=== PATIENT | male | born 1965 | race Caucasian/White ===

== ENCOUNTER 2017-08-05 10:09 | Emergency (ER) | payer OTHER ==
[2017-08-05] MEDS ORDERED: Ondansetron INJ* 2 MG/ML VIAL IV ONE (10:17)
[2017-08-05] MEDS ORDERED: Morphine INJ* 2 MG/ML 1 ML SYRINGE (TWO MG - NEW SYRINGE VERSION) IV ONE (10:17)
[2017-08-05 10:18] VITALS: BP 137/80
[2017-08-05] MEDS ORDERED: NS 0.9% 1000 ML* 1,000 ML IV ONE (10:20)
[2017-08-05] MEDS ORDERED: Morphine INJ* 2 MG/ML 1 ML CARPUJECT ONE (10:26)
--- NOTE | 2017-08-05 10:28 | UC ---
Jacob Mackey Thomas, scribed for Lisa Bernal MD on 08/05/17 at 1021 . Truncal Trauma HPI - HPI Summary HPI Summary: The pt is a 51 y/o M presenting to Urgent Care c/o back pain and rib pain s/p an injury that occurred today at about 08:00. The patient was cutting wood when he was struck in his back by a branch, causing his body to be thrown upwards over a tree and landing on right back / ups. The pain is greatest on the right right side of his ribs and back. The pain is constant and is severe. Pt states pain increases with movement and deep breaths. Pt states he was able to drive himself out of the [place] " but that is about it" Pt was driven to . The pain is aggravated by breathing and movement. It is alleviated by nothing. 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 Pt has no other complaints at this time. Pt denies head trauma, LOC, no neck pain, no blood out of eyes/ ears/nose/mouth. No abdominal pain. No n/c. The patient did use marijuana today although he denies alcohol or drug use today. not anticoagulated. Patients medication reviewed this visit. 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 Onset/Duration: Lasting Hours - today at 08:00, Still Present Severity Initially: Severe Severity Currently: Severe Mechanism Of Injury: Blunt Trauma, Fall From A Standing Position, Other - struck in his back by a branch Aggravating Factor(s): Movement, Deep Breathing, Other - palpation Alleviating factor(s): Nothing - Allergies/Home Medications Allergies/Adverse Reactions: Allergies Allergy/AdvReac Type Severity Reaction Status Date / Time Prednisone Allergy Severe Bone Pain Verified 07/02/16 16:01 PMH/Surg Hx/FS Hx/Imm Hx Previously Healthy: No - Carpel Tunnel Syndrome, HLD - Surgical History Surgical History: Yes Surgery Procedure, Year, and Place: POLYPS REMOVED FROM VOCAL CORDS 2009 OR 2011 , carpal tunnel - Family History Known Family History: Positive: Hypertension, Diabetes - Social History 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 Lives: With Family Alcohol Use: Occasionally Substance Use Type: Marijuana Substance Use Comment - Amount & Last Used: DAILY Smoking Status (MU): Current Every Day Smoker Type: Cigarettes Amount Used/How Often: 1 1 1/2 PPD Length of Time of Smoking/Using Tobacco: 20 Have You Smoked in the Last Year: Yes Review of Systems Constitutional: Other - NEGATIVE: fever Eyes: Negative ENT: Negative Respiratory: Other - pain in right posterior ribs, upper back Genitourinary: Negative Motor: Negative Neurovascular: Negative Musculoskeletal: Negative, Other: - Back pain Neurological: Negative Is Patient Immunocompromised?: No All Other Systems Reviewed And Are Negative: Yes Physical Exam Triage Information Reviewed: Yes Appearance: Well-Nourished, Pain Distress Vital Signs: Initial Vital Signs Temp 99.1 F 08/05/17 10:15 Pulse 100 08/05/17 10:15 Resp 24 08/05/17 10:15 BP 137/80 08/05/17 10:15 Pulse Ox 96 08/05/17 10:15 Vital Signs Reviewed: Yes Eyes: Positive: Conjunctiva Clear. Negative: Discharge ENT: Positive: Hearing grossly normal Neck exam: Normal Neck: Positive: Supple, Nontender Respiratory: Positive: Other: - + BS but decreased at bases. Pt shallow resp second to pain + significant TTP right posterior ribs - mid back. Negative: No accessory muscle use Cardiovascular Exam: Normal Cardiovascular: Positive: RRR, No Murmur Abdominal Exam: Normal Abdomen Description: Positive: Nontender, No Organomegaly, Soft, Other: - soft + BS no guarding, no rebound. No ecchymosis to abdomen No ecchymosis to flank Bowel Sounds: Positive: Present Musculoskeletal: Positive: Other: - no pain c spine + Movement of RUQ causes pain in right back. No pain in extremities No pain spinous process c/t/l/s No crepitus but pain along right, mid posterior ribs Neurological Exam: Normal Neurological: Positive: Alert Psychological Exam: Normal Skin: Positive: Other - pt with mobile ? lipoma right distal rib - old per pt Truncal Trauma Course/Dx - Course Course Of Treatment: The pt is a 51 year old male with severe back and rib pain status post an injury that occurred today at about 08:00. The patient was cutting wood when he was struck in his back by a branch, causing his body to be thrown upwards into a tree. Pt is significant pain along right posterior ribs. No spinous process pain. Will place IV. analgesia, antiemetic. Will send to ED by EMS. Pt in agreement - Differential Dx/Diagnosis Provider Diagnoses: right posterior rib pain s/p direct trauman and subsequent fall. blunt trauma Discharge - Discharge Plan Condition: Stable Disposition: TRANS HIGHER LVL OF CARE FAC Referrals: Eric Carson DO [Primary Care Provider] - The documentation as recorded by the Jacob shahid Thomas accurately reflects the service I personally performed and the decisions made by , Lisa Bernal MD.
== END 2017-08-05 10:45 | disposition short-term general hospital (02) ==
LOC: UCEAST 10:09
DX: S29.9XXA Unspecified injury of thorax, initial encounter (principal); R07.81 Pleurodynia; W18.00XA Striking against unspecified object with subsequent fall, initial encounter; Y92.9 Unspecified place or not applicable; F17.210 Nicotine dependence, cigarettes, uncomplicated; Z88.8 Allergy status to other drugs, medicaments and biological substances
CPT/HCPCS: 96360; 96374; 96376; 99213; G0463; J2270; J2405

== ENCOUNTER 2017-08-05 11:06 | Emergency (ER) | payer OTHER ==
[2017-08-05] MEDS ORDERED: NS 0.9% 1000 ML* 1,000 ML IV ONE (11:14)
[2017-08-05] MEDS ORDERED: HYDROmorphone INJ* 2 MG/ML CARPUJECT SYRINGE IV SLOW PU ONE (11:14)
[2017-08-05] MEDS ORDERED: Ondansetron INJ* 2 MG/ML VIAL IV ONE (11:14)
[2017-08-05] MEDS ORDERED: Iohexol 300* (CONTRAST) 10 ML SDV IV ONE (11:31)
[2017-08-05 11:57] LABS: Hematocrit 45 % (42-52); Hemoglobin 14.8 g/dl (14.0-18.0); Mean Corpuscular HGB Conc 33 g/dl (31-36); Mean Corpuscular Hemoglobin 31 pg (27-31); Mean Corpuscular Volume 93 fL (80-94); Mean Platelet Volume 8 um3 (7.4-10.4); Red Blood Count 4.77 10^6/ul (4.0-5.4); Red Cell Distribution Width 14 % (10.5-15); White Blood Count 13.1 10^3/ul (3.5-10.8)
[2017-08-05 12:10] LABS: Albumin 4.1 g/dL (3.2-5.2); BUN/Creatinine Ratio 16.7 (8-20); Calcium 10.3 mg/dL (8.6-10.3); EGFR Non-African American 115.1 (>60); Globulin 2.8 g/dL (2-4); Potassium 3.8 mmol/L (3.5-5.0); Total Bilirubin 0.4 mg/dL (0.2-1.0); Total Protein 6.9 g/dL (6.4-8.9)
--- NOTE | 2017-08-05 12:18 | RAD ---
HISTORY: Trauma, back pain COMPARISONS: None TECHNIQUE: Multiple contiguous axial CT scans were obtained of the cervical spine without intravenous contrast, with coronal and sagittal multiplanar reformations. FINDINGS: BRAIN: The visualized brain is unremarkable CENTRAL CANAL: Evaluation of the central canal is limited on CT technique; however, there is no obvious canalicular mass or epidural hemorrhage. ALIGNMENT: The alignment is normal, without subluxation or dislocation. VERTEBRAL BODIES: The odontoid process is intact. The atlantoaxial intervals are symmetric. The vertebral bodies are normal in attenuation, without fracture. JOINTS: There is uncovertebral hypertrophy at C6-C7. MUSCULATURE: Normal INTERVERTEBRAL DISCS: There is diffuse loss of intervertebral disc height. AXIAL IMAGES: C2-C3: There is no osseous neural foraminal narrowing or central canal stenosis. C3-C4: There is no osseous neural foraminal narrowing or central canal stenosis. C4-C5: There is no osseous neural foraminal narrowing or central canal stenosis. C5-C6: There is no osseous neural foraminal narrowing or central canal stenosis. C6-C7: There is moderate bilateral neural foraminal narrowing. There is no osseous central canal stenosis. C7-T1: There is no osseous neural foraminal narrowing or central canal stenosis. SOFT TISSUES: The visualized soft tissues of the neck are unremarkable. The prevertebral fat stripe is preserved. OTHER: None. IMPRESSION: 1. DEGENERATIVE DISC DISEASE AND OSTEOARTHRITIS MOST PRONOUNCED AT C6-C7. 2. NO ACUTE OSSEOUS INJURY TO THE CERVICAL SPINE
--- NOTE | 2017-08-05 12:35 | RAD ---
INDICATION: Fall, back pain. COMPARISON: There are no prior studies available for comparison. TECHNIQUE: A CT scan of the chest, abdomen and pelvis was performed with intravenous and without oral contrast following intravenous injection of 90 ml of Omnipaque 300 nonionic contrast. Contiguous axial sections were obtained from the lung apices through the symphysis pubis. Images were reconstructed in the coronal and sagittal planes. FINDINGS: There is mild dependent bilateral lower lobe subsegmental atelectasis. No pleural effusion or pneumothorax is seen. No mediastinal hemorrhage is seen. There are mildly prominent lymph nodes in the precarinal region measuring up to 1 cm in transverse dimension. No other enlarged mediastinal or hilar lymph nodes are seen. The heart is within normal limits in size. No pericardial effusion is present. The thoracic aorta is normal in caliber and demonstrates homogeneous contrast opacification. The liver and spleen are normal in size without significant focal abnormality. No calcified gallstones are seen. The pancreas appears to be within normal limits in size. The kidneys and adrenal glands are normal in size. There is no evidence for hydronephrosis. No significant focal renal abnormality is seen. The aorta is normal in caliber and there is mild calcific plaque present. There is no evidence for retroperitoneal hemorrhage. No significant enlarged retroperitoneal lymph nodes are seen. The stomach, small and large bowel appear nondistended. The appendix appears to be within normal limits. No small bowel or colon wall thickening is seen. No free intraperitoneal air or fluid is seen. There are slightly displaced fractures of the right posterior lateral ninth and 10th ribs. IMPRESSION: 1. SLIGHTLY DISPLACED FRACTURES OF THE RIGHT POSTERIOR NINTH AND 10TH RIBS. NO EVIDENCE FOR PULMONARY CONTUSION, PNEUMOTHORAX OR PLEURAL EFFUSION. 2. NO EVIDENCE FOR INTRA-ABDOMINAL INJURY.
--- NOTE | 2017-08-05 13:29 | RAD ---
HISTORY: Trauma, back pain COMPARISONS: CT of the chest abdomen and pelvis performed on the same day TECHNIQUE: Multiple contiguous axial CT scans were obtained of the thoracic spine without intravenous contrast, with coronal and sagittal multiplanar reformations. FINDINGS: SPINAL CANAL: Evaluation of the central canal is limited on CT technique; however, there is no obvious canalicular mass or epidural hemorrhage. ALIGNMENT: The alignment is normal. VERTEBRAL BODIES: The vertebral bodies are preserved in height. The bones are normal in attenuation. There is mild anterolateral marginal osteophyte formation. JOINTS: There is osteoarthrosis of the costovertebral articulations. MUSCULATURE: Unremarkable INTERVERTEBRAL DISCS: There is diffuse loss of intervertebral disc height throughout the spine. AXIAL IMAGES: There is no osseous central canal stenosis or neuroforaminal narrowing. SOFT TISSUES: The visualized soft tissues of the chest and abdomen are unremarkable. 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 DEGENERATIVE DISC DISEASE AND OSTEOARTHRITIS. 2. NO OSSEOUS NEURAL FORAMINAL NARROWING OR CENTRAL CANAL STENOSIS. 3. NO ACUTE OSSEOUS INJURY TO THE THORACIC SPINE
[2017-08-05 15:13] VITALS: BP 117/71
--- NOTE | 2017-08-05 18:06 | ED ---
Joey Mackey Angela, scribed for Hellen Moore MD on 08/05/17 at 1123 . Adult Trauma - HPI Summary HPI Summary: This pt is a 51 y/o male [facility]/o right sided back pain s/p getting hit by a tree branch. Pt reports he was cutting branches today when a branch hit him on his back and subsequently fell, landing on his arms. He denies LOC or head strike. Pt notes his pain is aggravated when breathing. Pt smokes 1.5 ppd and marijuana daily. Pt currently takes vitamins. Allergies include prednisone. - History of Current Complaint Stated Complaint: FALL Hx Obtained From: Patient Mechanism of Injury: Fall Ambulatory at the Scene: Yes Loss of Consciousness: no loss of consciousness Onset/Duration: Started Hours Ago, Traumatic, Still Present Onset of Pain: Immediate Current Severity: Severe Pain Intensity: 10 Pain Scale Used: 0-10 Numeric Location: Back Aggravating Factor(s): Other - breathing Alleviating Factor(s): Nothing Associated Signs & Symptoms: Negative: Loss of Consciousness - Allergy/Home Medications Allergies/Adverse Reactions: Allergies Allergy/AdvReac Type Severity Reaction Status Date / Time Prednisone Allergy Severe Bone Pain Verified 08/05/17 11:18 Poison Hazard Extract Allergy Unknown Verified 08/05/17 11:18 Reaction Details PMH/Surg Hx/FS Hx/Imm Hx Endocrine/Hematology History: Denies: Hx Diabetes, Hx Thyroid Disease Cardiovascular History: Reports: Hx Angina, Hx Hypercholesterolemia Denies: Hx Coronary Artery Disease, Hx Hypertension, Hx Myocardial Infarction , Hx Valvular Heart Disease Respiratory History: Reports: Other Respiratory Problems/Disorders - SOB recently Denies: Hx Asthma, Hx Chronic Obstructive Pulmonary Disease (COPD) Musculoskeletal History: Reports: Other Musculoskeletal History - BACK MUSCLES AND SHOULDER PAIN, STIFFNESS IN JOINTS, carpal tunnel Sensory History: Reports: Hx Contacts or Glasses Denies: Hx Hearing Aid Opthamlomology History: Reports: Hx Contacts or Glasses - Surgical History Surgery Procedure, Year, and Place: POLYPS REMOVED FROM VOCAL CORDS 2009 OR 2011 , carpal tunnel Hx Anesthesia Reactions: No Infectious Disease History: Denies: Hx Hepatitis, Hx Human Immunodeficiency Virus (HIV), Traveled Outside the [place] in Last 30 Days - Family History Known Family History: Positive: Hypertension, Diabetes - Social History Alcohol Use: Occasionally Substance Use Type: Reports: Marijuana Substance Use Comment - Amount & Last Used: DAILY Smoking Status (MU): Current Every Day Smoker Type: Cigarettes Amount Used/How Often: 1 1 1/2 PPD Length of Time of Smoking/Using Tobacco: 20 Have You Smoked in the Last Year: Yes Review of Systems Negative: Fever, Chills Eyes: Negative ENT: Negative Cardiovascular: Negative Positive: Other - back pain Negative: Headache - or head strike, Syncope - or LOC All Other Systems Reviewed And Are Negative: Yes Physical Exam Triage Information Reviewed: Yes Vital Signs Reviewed: Yes Appearance: Positive: Thin Skin: Positive: Warm, Skin Color Reflects Adequate Perfusion, Dry Head/Face: Positive: Normal Head/Face Inspection Eyes: Positive: Normal ENT: Positive: Normal ENT inspection, Hearing grossly normal Respiratory/Lung Sounds: Positive: Clear to Auscultation, Decreased Breath Sounds - secondary to pain Cardiovascular: Positive: Normal, RRR Musculoskeletal: Positive: Other - some tenderness and swelling over the right scapular area. Pain is worse with deep breathing. Neurological: Positive: Normal, Sensory/Motor Intact, Alert, Oriented to Person Place, Time Psychiatric: Positive: Normal Diagnostics - Laboratory Result Diagrams: 08/05/17 11:34 08/05/17 11:34 Lab Statement: Any lab studies that have been ordered have been reviewed, and results considered in the medical decision making process. - CT Cervical spine CT CT Interpretation: No Acute Changes - IMPRESSION: 1. Degenerative disc disease and osteoarthritis most pronounced at C6-C7. 2. No acute osseous injury to the cervical spine. ED physician has reviewed this radiology report and agrees. CT Interpretation Completed By: Radiologist Chest/Abdomen/Pelvis CT CT Interpretation: Positive (See Comments) - IMPRESSION: 1. Slightly displaced fractures of the right posterior ninth and 10th ribs. No evidence for pulmonary contusion. Pneumothorax or pleural effusion. 2. No evidence for intra-abdominal injury. ED physician has reviewed this radiology report and agrees. CT Interpretation Completed By: Radiologist Thoracic spine CT CT Interpretation: No Acute Changes - IMPRESSION: 1. Degenerative disc disease and osteoarthritis. 2. No osseous neural foraminal narrowing or central canal stenosis. 3. No acute osseous injury to the thoracic spine. ED physician has reviewed this radiology report and agrees. CT Interpretation Completed By: Radiologist Re-Evaluation - Re-Evaluation First Eval Re-Evaluation Time: 13:15 Comment: I reviewd the CT chest/abd/pelvis results with the pt. Adult Trauma Course/Dx - Course Assessment/Plan: Pt is a 51 y/o male who presents with right sided back pain s/ p getting hit by a tree branch. Blood work, chest XR, CT chest/abdomen/pelvis, CT cervical spine, and CT thoracic spine were obtained. Lab work show WBC of 13.1, glucose of 124. In the ED course the pt was given IV fluids, dilaudid, and zofran. Cervical spine CT shows 1. Degenerative disc disease and osteoarthritis most pronounced at C6-C7. 2. No acute osseous injury to the cervical spine. CT chest/abdomen/pelvis reveals : 1. Slightly displaced fractures of the right posterior ninth and 10th ribs. No evidence for pulmonary contusion. Pneumothorax or pleural effusion. 2. No evidence for intra-abdominal injury. Thoracic spine CT shows 1. Degenerative disc disease and osteoarthritis. 2. No osseous neural foraminal narrowing or central canal stenosis. 3. No acute osseous injury to the thoracic spine. Pt will be discharged home with oxycodone and spirometer. Pt is agreeable with this plan. - Diagnoses Provider Diagnoses: Rib fracture Discharge - Discharge Plan Condition: Stable Disposition: HOME Prescriptions: oxyCODONE/Acetamin 5/325 MG* [Percocet 5/325 TAB*] 1 tab PO Q6H PRN #20 tab MDD 4 PRN Reason: Pain oxyCODONE/Acetamin 5/325 MG* [Percocet 5/325 TAB*] 1 tab PO Q6H PRN #20 tab MDD 2 PRN Reason: Pain Patient Education Materials: Rib Fracture (ED) Referrals: Eric Carson DO [Primary Care Provider] - 2 Days Additional Instructions: Use spirometer every 15 minutes while awake. Return to ED if worse. The documentation as recorded by the Joey shahid Angela accurately reflects the service I personally performed and the decisions made by , Hellen Moore MD.
== END 2017-08-05 15:09 | disposition home or self-care (01) ==
LOC: ED 11:06
DX: S22.39XA Fracture of one rib, unspecified side, initial encounter for closed fracture (principal); M54.9 Dorsalgia, unspecified; M51.34 Other intervertebral disc degeneration, thoracic region; W22.8XXA Striking against or struck by other objects, initial encounter; Y93.H2 Activity, gardening and landscaping; Y92.9 Unspecified place or not applicable
CPT/HCPCS: 36415; 71260; 72125; 72128; 74177; 80053; 82550; 83605; 85025; 85610; 86850; 86900; 86901; 96374; 96375; 99282; J1170; J2405; Q9967

== ENCOUNTER → 2019-04-02 06:36 | Day surgery (SDC) | payer OTHER ==
[~2019-04-02 06:36] MED LIST: Acetaminophen TAB* 325 MG PO PRN; Buffered Lidocaine 1% SYRIN* 1 ML/SYRINGE INTRADERM ONE; Bupivacaine 0.25% W/EPI* 10 ML SDV ONE; Dexamethasone IV* 4 MG/ML 1 ML (4 MG) IV SLOW PU ONE; Dexamethasone IV* 4 MG/ML 1 ML (4 MG) ONE; DiMENhydriNATE IV* 50 MG/ML VIAL IV PUSH PRN; HYDROcodone/ACETAMIN 5-325 MG* 1 TAB PO PRN; HYDROmorphone INJ1* 1 MG/ML SYRINGE IV PRN; KETAMINE HCL* 50 MG/ML 10 ML VIAL ONE; Ketorolac INJ* 30 MG/ML 1 ML VIAL IV PRN; Ketorolac INJ* 30 MG/ML 1 ML VIAL ONE; Lactated Ringers 1000 ML Bag* 1,000 ML IV SCH; Lidocaine 2% PF * 5 ML VIAL ONE; Midazolam* 1 MG/ML 2 ML VIAL (2 MG) ONE; Naloxone* 0.4 MG/ML 1 ML VIAL IV PRN; Propofol* 10 MG/ML 20 ML BTL ONE; ceFAZolin 2 GM in NS PREMIX(*) 2 GM/100 ML BAG IVPB ONE; fentaNYL* 50 MCG/ML 2 ML VIAL (100 MCG VIAL) IV PRN; fentaNYL* 50 MCG/ML 2 ML VIAL (100 MCG VIAL) ONE
--- NOTE | 2019-04-02 11:26 | OP ---
Operative Report - Blank - Operative Report Date of Operation: 04/02/19 Note: PATIENT: Lg Servin DATE OF : 1965 DATE OF SURGERY: 04/02/2019 SURGEON: Ang Clay MD KILN OPERATOR HELPER: SUNSHINE Woodard, whos assistance was necessary for positioning, retraction, help with instrumentation, and closure. ANESTHESIOLOGIST: Dr. Duke PREOPERATIVE DIAGNOSIS: Right peroneal tenosynovitis and peroneus brevis tear. POSTOPERATIVE DIAGNOSIS: Right peroneal tenosynovitis and peroneus brevis tear. Right calcaneal exostosis. OPERATION: 1. Right peroneus brevis tendon repair. 2. Right synovectomy of peroneal tendon sheath. 3. Right calcaneal saucerization with excision of an enlarged peroneal tubercle. ANESTHESIA: General IMPLANTS: none TOURNIQUET TIME: Less than 1 hour with a well-padded thigh tourniquet at 250mmHg SPECIMENS: none ESTIMATED BLOOD LOSS: minimal COMPLICATIONS: none STATUS: Stable from the operating room to the recovery room and then home. INDICATIONS FOR PROCEDURE: Lg has had persistent right ankle pain and swelling at the lateral ankle and hindfoot. Both operative and non operative treatment alternatives were reviewed. Further, the nature and risks of surgery were reviewed in careful detail, in the office as well as the pre-operative holding area. Our discussions regarding the risks of surgery included, but were not limited to, infection, wound problems, nerve injury, neuroma, RSD, persistent symptoms, blood clot, failure of the surgery, recurrence, need for further surgery, and even the remote chance of catastrophic complication, including loss of limb. DESCRIPTION OF PROCEDURE: The patient was seen in the preoperative holding unit and informed written consent was obtained. The appropriate extremity was marked. The patient was then brought to the operating room and carefully positioned on the operating room table. Anesthesia was induced. All bony prominences were padded with great care. A chlorhexidine based pre-scrub was performed followed by a chloraprep prep and drape in standard sterile fashion. A surgical safety pause was then conducted in which we confirmed the appropriate patient, extremity, planned procedure, availability of equipment, indication and administration of prophylactic antibiotics, and DVT prophylaxis in the form of a compression boot on the non-surgical extremity. An Esmarch exsanguination of the limb was then performed and the tourniquet inflated. I utilized an incision overlying the peroneal tendons laterally. I carried the dissection down through the soft tissue to the level of the periosteum and superior peroneal retinaculum (SPR) with care taken to protect the sural nerve, which was not visualized during the procedure. I carefully incised the SPR off of the posterior fibula to expose the peroneal tendons. There is extensive tenosynovitis and proliferative synovial tissue in the tendon sheath. There was a large amount of fluid which was decompressed. Dissection of the tendons was carried distally. An extensive synovectomy was performed and sent to pathology as a specimen. The tendons were explored at this time for any tears. There was a large longitudinal split tear of the peroneus brevis at the level of the retro-fibular groove. I removed a small slip of loose frayed tendon in this area, leaving approximately 80% of the tendon intact. I then utilized a 3-0 Ethibond suture to repair the tendon tear. I then exposed an enlarged peroneal tubercle. There appeared to be stenosis of the peroneal tendons at this level. I took down the gliding layer and then utilized a rongeur to remove this large tubercle, thus performing a saucerization of the calcaneus. I then utilized a 3-0 Ethibond suture to repair the gliding layer back over the lateral wall of the calcaneus. At this point, I carefully inspected the peroneal groove at the posterior aspect of the fibula. This was deemed to have adequate depth so the decision was made not to perform a groove deepening procedure. So at this point I carefully planned out the repair of the superior peroneal retinaculum. I then reduced the tendons and they sat nicely in the retro-fibular groove. The wound was copiously irrigated. I repaired the SPR utilizing #1 Vicryl suture in a transosseous horizontal mattress suture pattern. I utilized multiple sutures for this repair, appropriately tensioning the SPR. I was able to pass a [place] under the repaired SPR without difficulty after the repair. We then irrigated the wound copiously again. The wound was closed in a layered fashion utilizing 3-0 Monocryl and skin shirley. A sterile dressing was then applied and the ankle was splinted in a neutral position. All needle and sponge counts were correct at the end of the case. The patient was awakened from anesthesia and transferred to the recovery room in stable condition. There were no complications. ATTESTATION: I attest I was present and scrubbed and performed the critical portions of the procedure myself. POST-OPERATIVE PLAN: The patient will remain [id number] for an anticipated duration of 6 weeks. Follow up will be in 2 weeks for likely suture removal and transition into a short leg cast.
[2019-04-02 12:29] VITALS: BP 110/59
== END | disposition home or self-care (01) ==
LOC: OR 06:36
PROVIDERS: ATTEND Orthopaedic Surgery
DX: S86.311A Strain of muscle(s) and tendon(s) of peroneal muscle group at lower leg level, right leg, initial encounter (principal); M65.871 Other synovitis and tenosynovitis, right ankle and foot; M76.71 Peroneal tendinitis, right leg; D16.31 Benign neoplasm of short bones of right lower limb; G47.33 Obstructive sleep apnea (adult) (pediatric); E78.5 Hyperlipidemia, unspecified; Z72.0 Tobacco use; G89.29 Other chronic pain; X58.XXXA Exposure to other specified factors, initial encounter; Y92.9 Unspecified place or not applicable
CPT/HCPCS: 88304; C1776; J0690; J1100; J1885; J2250; J2704; J3010